=== PATIENT | male | born 1955 | race Caucasian/White ===

== ENCOUNTER 2016-09-10 13:19 | Outpatient (CLI) | payer BC ==
[2016-09-10 13:53] LABS: BASOPHILS # (AUTO) 0.1 10^3/uL (0.0-0.1); BASOPHILS % (AUTO) 1.5 %; EOSINOPHILS # (AUTO) 0.4 10^3/uL (0.0-0.7); EOSINOPHILS % (AUTO) 9.3 %; HGB - HEMOGLOBIN 14.5 g/dL (14.0-18.0); LYMPHOCYTES # (AUTO) 1.4 10^3/uL (1.5-3.5); LYMPHOCYTES % (AUTO) 30.1 %; MEAN CORPUSCULAR HEMOGLOBIN 29.7 pg (27.0-31.0); MEAN CORPUSCULAR HGB CONC 34.6 g/dL (32.0-36.0); MEAN CORPUSCULAR VOLUME 85.9 fL (80.0-94.0); MEAN PLATELET VOLUME 7.3 fL (7.4-11.4); MONOCYTES # (AUTO) 0.5 10^3/uL (0.0-1.0); MONOCYTES % (AUTO) 11.3 %; NEUTROPHILS # (AUTO) 2.2 10^3/uL (1.5-6.6); NEUTROPHILS % (AUTO) 47.8 %; RED BLOOD COUNT 4.88 10^6/uL (4.70-6.10); UNCORRECTED WHITE BLOOD COUNT 4.5 x10^3/uL; WHITE BLOOD COUNT 4.5 x10^3/uL (4.8-10.8)
[2016-09-10 14:09] LABS: ALBUMIN/GLOBULIN RATIO 1.3 (1.0-2.2); BILIRUBIN,TOTAL 0.6 mg/dL (0.2-1.0); CREATININE 0.9 mg/dL (0.6-1.2); POTASSIUM 4.1 mmol/L (3.5-5.0); TOTAL PROTEIN 6.8 g/dL (6.7-8.2)
[2016-09-15 16:13] LABS: TEST RESULT REPORT (())
== END 2016-09-10 13:20 | disposition home or self-care (01) ==
LOC: LAB 13:19
PROVIDERS: ATTEND Family Medicine
DX: R06.00 Dyspnea, unspecified (principal)
CPT/HCPCS: 36415; 80053; 81599; 85025; 86635

== ENCOUNTER 2022-06-01 12:32 | Emergency (ER) | payer MEDICARE, BC ==
--- NOTE | 2022-06-01 15:36 | ED Physician Documentation ---
History of Present Illness - Stated complaint Stated Complaint: MALE - Chief complaint Chief Complaint: Abd Pain - History obtained from History obtained from: Patient - History of Present Illness Timing: Today Pain level max: 0 Pain level now: 0 - Additonal information Additional information: Patient is a 67-year-old male who states that he was recently diagnosed with a "demyelinating disease." He does not know anything further than this. He states that several days ago he had inability to empty his bladder and started having stool incontinence. He was seen here and a Flores catheter was placed at that time. He states that the stool incontinence has worsened since that time. He is also having perineal numbness. Has numbness to the bilateral upper thighs as well. No fevers. No chills. No trauma. Nothing makes it better or worse. Review of Systems Constitutional: denies: Fever Cardiac: denies: Chest pain / pressure Respiratory: denies: Cough GI: denies: Abdominal Pain, Nausea, Vomiting, Diarrhea Skin: denies: Rash Musculoskeletal: denies: Neck pain, Back pain Neurologic: denies: Headache PD PAST MEDICAL HISTORY - Past Medical History Past Medical History: Yes Cardiovascular: High cholesterol Respiratory: None Neuro: Other Endocrine/Autoimmune: None GI: GERD : Retention, Indwelling catheter HEENT: None Psych: None Musculoskeletal: Other Derm: None - Past Surgical History Past Surgical History: Yes Ortho: Spine surgery - Present Medications Home Medications: Ambulatory Orders Medication Instructions Recorded Confirmed Omeprazole 10 mg PO DAILY 05/28/22 06/01/22 Risankizumab-Rzaa [Skyrizi] 1 ml IM Q90D 05/28/22 06/01/22 Rosuvastatin Calcium [Crestor] 20 mg PO DAILY 05/28/22 06/01/22 Tamsulosin HCl [Flomax] 0.4 mg PO DAILY 05/28/22 06/01/22 Aspirin EC [Ecotrin] 81 mg PO DAILY 06/01/22 06/01/22 - Allergies Allergies/Adverse Reactions: Allergies Allergy/AdvReac Type Severity Reaction Status Date / Time No Known Drug Allergies Allergy Verified 06/01/22 12:42 - Social History Does the pt smoke?: No Smoking Status: Never smoker Does the pt drink ETOH?: No Does the pt have substance abuse?: No - Immunizations Immunizations are current?: Yes - POLST Patient has POLST: No PD ED PE NORMAL - Vitals Vital signs reviewed: Yes - General General: Alert and oriented X 3 - HEENT HEENT: Moist mucous membranes - Neck Neck: Supple, no meningeal sign - Cardiac Cardiac: RRR, Strong equal pulses - Respiratory Respiratory: No respiratory distress, Clear bilaterally - Abdomen Abdomen: Soft, Non tender, Non distended - Male Male : Other (Flores catheter in place) - Rectal Rectal: Other (Patient has minimal rectal tone. Patient has minimal ability to squeeze the sphincter muscle. Patient has diffuse saddle anesthesia) - Back Back: No spinal TTP - Derm Derm: Warm and dry, No rash - Extremities Extremities: Other (Decree sensation over the bilateral upper thighs.) - Neuro Neuro: Alert and oriented X 3, No motor deficit Results - Vitals Vitals: Vital Signs - 24 hr 06/01/22 06/01/22 12:37 15:09 Temperature 36.8 C Heart Rate 60 59 L Respiratory 16 16 Rate Blood Pressure 150/61 H 159/79 H O2 Saturation 100 100 Oxygen O2 Source Room air - Labs Labs: Laboratory Tests 06/01/22 06/01/22 15:52 15:52 WBC 5.5 RBC 4.87 Hgb 14.0 Hct 42.5 MCV 87.3 MCH 28.7 MCHC 32.9 RDW 13.8 Plt Count 258 MPV 9.5 Neut # (Auto) 3.5 Lymph # (Auto) 1.1 L Grayson # (Auto) 0.6 Eos # (Auto) 0.3 Baso # (Auto) 0.0 Absolute Nucleated RBC 0.00 Nucleated RBC % 0.0 Sodium 140 Potassium 3.9 Chloride 104 Carbon Dioxide 29 Anion Gap 7.0 BUN 18 Creatinine 0.9 Estimated GFR (MDRD) 84 L Glucose 117 H Calcium 9.3 - Rads (name of study) MRI thoracic spine With and without Radiology: Other MRI lumbar spine without Radiology: Other PD Medical Decision Making - ED course Complexity details: reviewed results, re-evaluated patient, considered differential, d/w patient, d/w java consultant ED course: 67-year-old male with cauda equina symptoms. He is not having any back pain. He does not have any significant abnormalities on CBC or BMP. A thoracic spine MRI with and without contrast as well as a lumbar spine without contrast were ordered. I discussed the case with his neurologist, Dr. Marilyn Garcia. The patient is an MRI still at the time of signout. The plan will be to recontact his neurologist with findings of the MRI. Patient will be signed out to Dr. Frye. Departure - Departure Clinical Impression: Loss of control of rectal sphincter, Saddle anesthesia Condition: Stable
[2022-06-01] MEDS ORDERED: LORazepam 2 MG/ML VIAL IVP STA (15:49)
[2022-06-01] MEDS ORDERED: GADOBUTROL 10 MMOL/10 ML VIAL ONE (15:54)
[2022-06-01 16:01] LABS: BASOPHILS % (AUTO) 0.7 %; EOSINOPHILS # (AUTO) 0.3 10^3/uL (0.0-0.7); EOSINOPHILS % (AUTO) 5.3 %; HCT - HEMATOCRIT 42.5 % (42.0-52.0); LYMPHOCYTES # (AUTO) 1.1 10^3/uL (1.5-3.5); LYMPHOCYTES % (AUTO) 19.6 %; MEAN CORPUSCULAR HEMOGLOBIN 28.7 pg (27.0-31.0); MEAN CORPUSCULAR HGB CONC 32.9 g/dL (32.0-36.0); MEAN CORPUSCULAR VOLUME 87.3 fL (80.0-94.0); MEAN PLATELET VOLUME 9.5 fL (7.4-11.4); MONOCYTES # (AUTO) 0.6 10^3/uL (0.0-1.0); MONOCYTES % (AUTO) 11.3 %; NEUTROPHILS # (AUTO) 3.5 10^3/uL (1.5-6.6); NEUTROPHILS % (AUTO) 62.7 %; PLT - PLATELET COUNT 258 10^3/uL (130-450); RED BLOOD COUNT 4.87 10^6/uL (4.70-6.10); RED CELL DISTRIBUTION WIDTH 13.8 % (12.0-15.0); WHITE BLOOD COUNT 5.5 x10^3/uL (4.8-10.8)
[2022-06-01 16:09] LABS: CALCIUM 9.3 mg/dL (8.5-10.3); CREATININE 0.9 mg/dL (0.6-1.2); POTASSIUM 3.9 mmol/L (3.5-5.0)
[2022-06-01] MEDS ORDERED: GADOBUTROL 10 MMOL/10 ML VIAL IVP ONE (18:06)
--- NOTE | 2022-06-01 20:50 | MRI Report ---
PROCEDURE: LUMBAR SPINE WO INDICATIONS: saddle anesthesia TECHNIQUE: Noncontrast sagittal T1 spin echo and T2 fast echo, sagittal STIR, axial T1 and T2 fast spin echo thr ough the lumbar spine. In cases with scoliosis, additional coronal T2 fast spin echo may be performe d. COMPARISON: None. FINDINGS: Image quality: Excellent. Alignment and Curvature: There is mild levoscoliosis; otherwise normal bony alignment. Bone Marrow: Marrow is of normal overall signal. No acute vertebral body compression fractures. Spinal Cord: Conus medullaris terminates at the L1 level. Visualized cord demonstrates normal signa l and size. Paraspinous Soft Tissues: No paravertebral masses. T12-L1: No central canal stenosis or foraminal stenosis. L1-L2: No central canal stenosis or foraminal stenosis. L2-L3: No central canal stenosis or foraminal stenosis. L3-L4: No central canal stenosis or foraminal stenosis. L4-L5: Discectomy and posterior fusion. No central canal stenosis or foraminal stenosis. L5-S1: Discectomy and posterior fusion. No central canal stenosis or foraminal stenosis. IMPRESSION: 1. Postsurgical changes in the lower lumbar spine. 2. No central canal stenosis or foraminal stenosis. Reviewed by: Bart Easley MD on 06/01/2022 8:49 PM PST Approved by: Bart Easley MD on 06/01/2022 8:49 PM PST Station ID: [id number]
--- NOTE | 2022-06-01 20:54 | MRI Report ---
PROCEDURE: THORACIC SPINE W/WO INDICATIONS: loss of bowel bladder control, demyelinating dz CONTRAST: GADAVIST 8.2 ML TECHNIQUE: Noncontrast sagittal T1 spin echo and T2 fast spin echo, sagittal STIR, axial T1 and T2 fast spin ech o through the thoracic spine. After the administration of contrast, axial and sagittal T1 spin echo with fat saturation through the thoracic spine. COMPARISON: None. FINDINGS: Image quality: Excellent. Bones and intervertebral discs: There is mild levoscoliosis. Normal bony alignment. There is orthopedic tech ior disc protrusion at T9-T10 causing moderate central canal stenosis. Marrow: Marrow is of normal overall signal. No acute vertebral body compression fractures. Spinal cord: Visualized spinal cord is of normal signal and size, without abnormal enhancement. Paraspinous soft tissues: No paravertebral masses or abnormal enhancement. Miscellaneous: Central canal and foramina appear widely patent at all scanned levels. IMPRESSION: 1. Moderate central canal stenosis at T9-T10 secondary to posterior disc protrusion.. 2. Scoliosis. Reviewed by: Bart Easley MD on 06/01/2022 8:53 PM PST Approved by: Bart Easley MD on 06/01/2022 8:53 PM PST Station ID: [id number]
[2022-06-01 21:10] VITALS: BP 122/68
--- NOTE | 2022-06-01 21:14 | ED Physician Documentation ---
ED Addendum - Addendum Addendum: 06/01/22 21:[address] Garcia at shift change. Briefly this is a 67-year-old gentleman with a neurologic disorder that is undergoing work-up. At shift change reads of his thoracic and lumbar MRIs were pending. These did not show any acute disease with the exception of moderate canal stenosis at T9-10 from posterior disc herniation. I discussed these findings by phone with Dr. Garcia, his neurologist, and she will call the patient tomorrow to arrange for further work- up and evaluation. Patient comfortable going home. Disposition: Discharged home Condition: Stable
== END 2022-06-01 21:23 | disposition home or self-care (01) ==
LOC: ED 12:32
DX: R20.0 Anesthesia of skin (principal); R15.9 Full incontinence of feces
CPT/HCPCS: 36415; 72148; 72157; 80048; 85025; 96374; 99284; A9585; J2060

== ENCOUNTER 2022-07-09 14:31 | Outpatient (CLI) | payer MEDICARE, BC | END 2022-07-09 14:32 | disposition home or self-care (01) | LOC: LAB 14:31 | PROVIDERS: ATTEND Physician Assistant | DX: L40.0 Psoriasis vulgaris (principal) | CPT/HCPCS: 81599; 86480 ==

== ENCOUNTER 2022-08-25 06:03 | Outpatient (CLI) | payer MEDICARE, BC ==
[2022-08-25 06:21] LABS: BASOPHILS % (AUTO) 0.7 %; EOSINOPHILS # (AUTO) 0.4 10^3/uL (0.0-0.7); EOSINOPHILS % (AUTO) 9.2 %; HCT - HEMATOCRIT 42.9 % (42.0-52.0); HGB - HEMOGLOBIN 14.1 g/dL (14.0-18.0); LYMPHOCYTES # (AUTO) 0.8 10^3/uL (1.5-3.5); LYMPHOCYTES % (AUTO) 19.7 %; MEAN CORPUSCULAR HGB CONC 32.9 g/dL (32.0-36.0); MEAN CORPUSCULAR VOLUME 88.1 fL (80.0-94.0); MEAN PLATELET VOLUME 8.9 fL (7.4-11.4); MONOCYTES # (AUTO) 0.4 10^3/uL (0.0-1.0); MONOCYTES % (AUTO) 9.2 %; NEUTROPHILS # (AUTO) 2.5 10^3/uL (1.5-6.6); PLT - PLATELET COUNT 194 10^3/uL (130-450); RED BLOOD COUNT 4.87 10^6/uL (4.70-6.10)
[2022-08-25 06:38] LABS: ALBUMIN/GLOBULIN RATIO 1.5 (1.0-2.2); ALKALINE PHOSPHATASE 27 IU/L (42-121); ALT ALANINE AMINOTRANSFERASE 30 IU/L (10-60); AST ASPARTATE AMINOTRANSFERASE 41 IU/L (10-42); BILIRUBIN,TOTAL 0.7 mg/dL (0.2-1.0); BUN - BLOOD UREA NITROGEN 22 mg/dL (6-20); CALCIUM 9.2 mg/dL (8.5-10.3); CARBON DIOXIDE - CO2 28 mmol/L (21-32); CHLORIDE 108 mmol/L (101-111); CHOL/HDL RATIO 2.9 (<5.0); CHOLESTEROL 151 mg/dL; CREATININE 0.8 mg/dL (0.6-1.2); GFR - MDRD 96 (>89); GLUCOSE 102 mg/dL (70-100); HDL CHOLESTEROL 52 mg/dL; LDL CHOLESTEROL,CALCULATED 84 mg/dL; LDL/HDL RATIO 1.6 (<3.6); SODIUM 143 mmol/L (135-145); TOTAL PROTEIN 6.7 g/dL (6.7-8.2); TRIGLYCERIDES 74 mg/dL; VLDL CHOLESTEROL 15 mg/dL
== END 2022-08-25 06:04 | disposition home or self-care (01) ==
LOC: LAB 06:03
PROVIDERS: ATTEND Internal Medicine
DX: E78.5 Hyperlipidemia, unspecified (principal); G37.3 Acute transverse myelitis in demyelinating disease of central nervous system; Z12.5 Encounter for screening for malignant neoplasm of prostate
CPT/HCPCS: 36415; 80053; 80061; 85025; G0103; 83721; 84153

== ENCOUNTER 2022-12-16 07:15 | Outpatient (CLI) | payer MEDICARE, BC ==
[2022-12-16 17:51] LABS: BILIRUBIN,URINE NEGATIVE (NEGATIVE); GLUCOSE, URINE (UA) NEGATIVE (NEGATIVE); KETONES,URINE (UA) TRACE mg/dL (NEGATIVE); LEUKOCYTE ESTERASE, URINE TRACE (NEGATIVE); NITRITE,URINE NEGATIVE (NEGATIVE); OCCULT BLOOD,URINE NEGATIVE (NEGATIVE); PROTEIN,URINE NEGATIVE (NEGATIVE); UROBILINOGEN,URINE 0.2 (NORMAL) E.U./dL (NORMAL)
[2022-12-16 18:03] LABS: BACTERIA,URINE Rare /HPF (None Seen); CLARITY,URINE SL. CLOUDY (CLEAR); MUCUS,URINE Marked Strands; RBC,URINE 0-5 /HPF (0-5); SQUAMOUS EPITHELIAL CELL,UR RARE Squamous (<= Few)
== END 2022-12-16 07:30 | disposition home or self-care (01) ==
LOC: LAB.N 07:15
PROVIDERS: ATTEND Emergency Medicine
DX: R10.819 Abdominal tenderness, unspecified site (principal)
CPT/HCPCS: 81001; 87086

== ENCOUNTER 2023-02-04 09:45 | Outpatient (CLI) | payer MEDICARE, BC | END 2023-02-04 10:00 | disposition home or self-care (01) | LOC: LAB.N 09:45 | PROVIDERS: ATTEND Physician Assistant Medical | DX: T83.511A Infection and inflammatory reaction due to indwelling urethral catheter, initial encounter (principal) | CPT/HCPCS: 87086; 87181 ==

== ENCOUNTER 2023-11-01 05:15 | Outpatient (CLI) | payer MEDICARE, BC ==
[2023-11-01 05:43] LABS: EOSINOPHILS # (AUTO) 0.3 10^3/uL (0.0-0.7); EOSINOPHILS % (AUTO) 6.9 %; HCT - HEMATOCRIT 43.9 % (42.0-52.0); HGB - HEMOGLOBIN 14.5 g/dL (14.0-18.0); LYMPHOCYTES # (AUTO) 0.9 10^3/uL (1.5-3.5); LYMPHOCYTES % (AUTO) 23.6 %; MEAN CORPUSCULAR HEMOGLOBIN 29.5 pg (27.0-31.0); MEAN CORPUSCULAR VOLUME 89.2 fL (80.0-94.0); MEAN PLATELET VOLUME 9.1 fL (7.4-11.4); MONOCYTES # (AUTO) 0.4 10^3/uL (0.0-1.0); MONOCYTES % (AUTO) 10.5 %; NEUTROPHILS # (AUTO) 2.3 10^3/uL (1.5-6.6); NEUTROPHILS % (AUTO) 57.7 %; PLT - PLATELET COUNT 181 10^3/uL (130-450); RED BLOOD COUNT 4.92 10^6/uL (4.70-6.10); RED CELL DISTRIBUTION WIDTH 13.3 % (12.0-15.0); WHITE BLOOD COUNT 3.9 x10^3/uL (4.8-10.8)
[2023-11-01 06:04] LABS: ALBUMIN 4.1 g/dL (3.2-5.5); ALBUMIN/GLOBULIN RATIO 1.8 (1.0-2.2); ALKALINE PHOSPHATASE 34 IU/L (42-121); ALT ALANINE AMINOTRANSFERASE 24 IU/L (10-60); AST ASPARTATE AMINOTRANSFERASE 27 IU/L (10-42); BILIRUBIN,TOTAL 0.6 mg/dL (0.2-1.0); BUN - BLOOD UREA NITROGEN 18 mg/dL (6-20); CALCIUM 9.7 mg/dL (8.5-10.3); CARBON DIOXIDE - CO2 28 mmol/L (21-32); CHLORIDE 106 mmol/L (101-111); CHOL/HDL RATIO 3.5 (<5.0); CHOLESTEROL 165 mg/dL; CREATININE 0.9 mg/dL (0.6-1.3); GFR - MDRD 84 (>89); GLUCOSE 102 mg/dL (74-104); HDL CHOLESTEROL 47 mg/dL; LDL CHOLESTEROL,CALCULATED 96 mg/dL; POTASSIUM 4.4 mmol/L (3.5-4.5); SODIUM 139 mmol/L (135-145); TOTAL PROTEIN 6.4 g/dL (6.4-8.9); TRIGLYCERIDES 111 mg/dL; VLDL CHOLESTEROL 22 mg/dL
== END 2023-11-01 05:16 | disposition home or self-care (01) ==
LOC: LAB 05:15
PROVIDERS: ATTEND Internal Medicine
DX: E78.5 Hyperlipidemia, unspecified (principal); N40.1 Benign prostatic hyperplasia with lower urinary tract symptoms; G37.3 Acute transverse myelitis in demyelinating disease of central nervous system
CPT/HCPCS: 36415; 80053; 80061; 83721; 84153; 85025

== ENCOUNTER 2023-11-20 07:31 | Outpatient (CLI) | payer MEDICARE, BC | END 2023-11-20 07:32 | disposition home or self-care (01) | LOC: LAB 07:31 | PROVIDERS: ATTEND Physician Assistant | DX: Z08 Encounter for follow-up examination after completed treatment for malignant neoplasm (principal); L40.8 Other psoriasis; L40.0 Psoriasis vulgaris; Z85.828 Personal history of other malignant neoplasm of skin | CPT/HCPCS: 81599 ==